=== PATIENT | female | born 1985 | race Caucasian/White ===

== ENCOUNTER 2018-04-11 16:49 | Emergency (ER) | payer MEDICAID ==
[2018-04-11] MEDS: morphine LIQ (10 MG/5 ML) CUP PO (19:19)
== END 2018-04-11 19:45 | disposition home or self-care (01) ==
LOC: FTE 16:49
DX: K64.5 Perianal venous thrombosis (principal)
CPT/HCPCS: 99283; Z7502

== ENCOUNTER 2018-04-12 11:48 | Emergency (ER) | payer MEDICAID ==
[2018-04-12] MEDS: SOD CHLORIDE 0.9% 1,000 ML IV (13:37)
[2018-04-12 13:50] LABS: ADD MAN DIFF? NO
[2018-04-12 13:51] LABS: BASOPHIL # 0.1 10^3/ul (0.0-0.1); BASOPHILS % 0.8 % (0.0-2.0); EOSINOPHILS # 0.1 10^3/ul (0.0-0.5); EOSINOPHILS % 1.4 % (0.0-7.0); LYMPHOCYTES # 3.3 10^3/ul (0.8-2.9); LYMPHOCYTES % 36.3 % (15.0-51.0); MEAN CORPUSCULAR HEMOGLOBIN 29.4 pg (29.0-33.0); MEAN CORPUSCULAR HGB CONC 33.3 g/dl (32.0-37.0); MEAN CORPUSCULAR VOLUME 88.2 fl (82.0-101.0); MEAN PLATELET VOLUME 9.1 fl (7.4-10.4); MONOCYTE # 0.9 10^3/ul (0.3-0.9); MONOCYTES % 10.1 % (0.0-11.0); NEUTROPHIL # 4.7 10^3/ul (1.6-7.5); NEUTROPHILS % 51.1 % (39.0-77.0); PLATELET COUNT 431 10^3/UL (140-415); RED BLOOD COUNT 4.42 10^6/ul (4.20-5.40); RED CELL DISTRIBUTION WIDTH 12.9 % (11.5-14.5)
[2018-04-12 13:51] LABS: WHITE BLOOD COUNT 9.1 10^3/ul (4.8-10.8)
[2018-04-12 13:53] LABS: ADD UMIC YES; UR ASCORBIC ACID NEGATIVE (NEGATIVE); UR BACTERIA FEW /HPF (NONE SEEN); UR BILIRUBIN (Dip) NEGATIVE (NEGATIVE); UR BLOOD (Dip) 1+ mg/dL (NEGATIVE); UR CLARITY SLIGHTLY CLOUDY (CLEAR); UR COLOR YELLOW (YELLOW); UR GLUCOSE (Dip) NEGATIVE (NEGATIVE); UR KETONES (Dip) NEGATIVE (NEGATIVE); UR LEUKOCYTE ESTERASE (Dip) NEGATIVE Leu/ul (NEGATIVE); UR NITRITE (Dip) NEGATIVE (NEGATIVE); UR RBC 4 /HPF (0-5); UR SPECIFIC GRAVITY (Dip) 1.014 (1.003-1.030); UR TOTAL PROTEIN (Dip) NEGATIVE (NEGATIVE); UR UROBILINOGEN (Dip) NEGATIVE (NEGATIVE); UR WBC 3 /HPF (0-5)
[2018-04-12 14:15] LABS: ANION GAP 12 (5-13); BLOOD UREA NITROGEN 11 mg/dl (7-20); CALCIUM 9.2 mg/dl (8.4-10.2); CARBON DIOXIDE 25 mmol/L (21-31); CHLORIDE 105 mmol/L (97-110); CREATININE 0.69 mg/dl (0.44-1.00); Estimated GFR > 60 mL/min (>60); GLUCOSE 94 mg/dl (70-220); POTASSIUM 4.5 mmol/L (3.5-5.1); SODIUM 142 mmol/L (135-144)
[2018-04-12] MEDS: IOHEXOL 300MG/ML 150 ML BTL (14:38)
[2018-04-12] MEDS: SOD CHLORIDE 0.9% 100 ML (14:38)
[2018-04-12] MEDS: KETOROLAC 30 MG INJ IV (14:40)
[2018-04-12] MEDS: DEXAMETHASONE 10 MG/ML 1 ML INJ IV (14:40)
== END 2018-04-12 15:31 | disposition home or self-care (01) ==
LOC: FTE 11:48
DX: K64.9 Unspecified hemorrhoids (principal)
CPT/HCPCS: 74177; 80048; 81001; 81025; 85025; 96361; 96374; 96375; 99285-25